=== PATIENT | female | born 1980 | race Caucasian/White ===

== ENCOUNTER 2023-08-31 11:12 | Emergency (ER) | payer MEDICAID ==
[~2023-08-31] VITALS: Ht 165.1 cm; Wt 80.0 kg
[2023-08-31 11:28] VITALS: O2SAT 97
[2023-08-31 13:20] LABS: CLARITY URINE CLEAR (CLEAR); COLOR URINE YELLOW (YELLOW); GLUCOSE URINE NEGATIVE (NEGATIVE); KETONES URINE NEGATIVE (NEGATIVE); LEUKOCYTE ESTERASE URINE 1+ (NEGATIVE); NITRITE URINE NEGATIVE (NEGATIVE); OCCULT BLOOD URINE NEGATIVE (NEGATIVE); PH URINE 7.5 (4.5-8.0); PROTEIN URINE NEGATIVE (NEGATIVE); SPECIFIC GRAVITY URINE 1.021 (1.005-1.030); UROBILINOGEN URINE 0.2 E.U./dL (0.2-1.0)
[2023-08-31 13:23] LABS: RBC URINE 0-2 /hpf (0-2); SQUAMOUS EPITHELIAL CELL URINE NONE SEEN /lpf (RARE/1+); YEAST URINE NONE SEEN
[2023-08-31 13:41] LABS: BACTERIA URINE 1+
[2023-08-31 13:54] LABS: BASOPHILS % 0.3 % (0.0-2.0); EOSINOPHILS % 1.8 % (0.0-5.0); HEMATOCRIT. 38.1 % (36.0-48.0); HEMOGLOBIN. 12.7 g/dL (12.0-16.0); LYMPHOCYTES % 19.2 % (20.0-50.0); MEAN CORPUSCULAR HEMOGLOBIN 28.6 pg (28.0-32.0); MEAN CORPUSCULAR HGB CONC 33.5 g/dL (31.0-37.0); MEAN CORPUSCULAR VOLUME 85.5 fL (81.0-99.0); MEAN PLATELET VOLUME 9.7 fl (7.4-10.4); MONOCYTES % 5.8 % (2.0-8.0); NEUTROPHILS % 72.9 % (40.0-76.0); PLATELET 179 x1000/uL (130-400); RED BLOOD CELL COUNT 4.46 mill/uL (4.2-5.4); RED CELL DISTRIBUTION WIDTH 13.5 % (11.6-14.6); WHITE BLOOD COUNT 4.7 x1000/uL (4.5-11.0)
[2023-08-31 13:59] LABS: CHLORIDE 110 mEq/L (98-107); HCG SCREEN NEGATIVE; INDEX HEMOLYSI 1 (1-3); INDEX ICTERIC 1 (1-4); INDEX LIPEMIC 1 (1-3); POTASSIUM 3.6 mEq/L (3.5-5.1); SODIUM 141 mEq/L (136-145)
[2023-08-31 14:08] LABS: ALANINE AMINOTRANSFERASE 30 IU/L (13-61); ALBUMIN 4.1 g/dL (3.4-5.0); ASPARTATE AMINOTRANSFERASE 20 IU/L (15-37); BILIRUBIN TOTAL 0.6 mg/dL (0.1-1.0); CALCIUM 8.9 mg/dL (8.5-10.1); CARBON DIOXIDE 26 mEq/L (21-32); CREATININE 0.7 mg/dL (0.6-1.3); GLUCOSE 88 mg/dL (70-105); PROTEIN TOTAL 7.8 g/dL (6.0-8.3); UREA NITROGEN BLOOD 17 mg/dL (7-21)
[2023-08-31] MEDS ORDERED: NITR-87 MT (16:27)
[2023-08-31] MEDS ORDERED: NITROFURANTOIN 100MG M/M CAPSULE PO ONE (16:30)
[2023-08-31] MEDS ORDERED: ACETAMINOPHEN 325MG TABLET PO ONE (16:30)
[2023-08-31 16:49] VITALS: BP 101/59; PULSE 59; RESP 19; TEMP 98.3
== END 2023-08-31 16:50 | disposition home or self-care (01) ==
LOC: ER 11:48
DX: R10.814 Left lower quadrant abdominal tenderness (principal); N39.0 Urinary tract infection, site not specified
CPT/HCPCS: 80053; 81003; 81025; 84703; 83690; 85025; 36415; 74176; 99284; Z7610